=== PATIENT | female | born 1990 | race Caucasian/White ===

== ENCOUNTER 2019-10-16 20:11 | Emergency (ER) | payer BC ==
[~2019-10-16] VITALS: Ht 162.6 cm; Wt 61.2 kg
--- NOTE | 2019-10-16 20:22 | NUR ---
PT PLACED IN BED 10. 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 PT STATES SHE WAS SUPPOSED TO HAVE ABLATION SURGERY TODAY AT [facility]. PT ALSO STATES SHE HAS R ARM CRAMPING. AAOX4. NO SOB. BREATHING EVENLY AND UNLABORED. CONNECTED TO MONITOR.
--- NOTE | 2019-10-16 20:25 | NUR ---
DALILA GARCES AT BEDSIDE FOR EVAL
[2019-10-16] MEDS ORDERED: IV NS 0.9% 1,000 ML BAG IV ONE (20:30)
[2019-10-16] MEDS ORDERED: LORAZEPAM INJ 2 MG/ML VIAL ONE (20:41)
[2019-10-16 20:50] LABS: BASOPHILS # (AUTO) 0.1 /CMM (0.0-0.2); EOSINOPHILS % (AUTO) 1.4 % (0.0-6.0); HEMATOCRIT 39 % (33-45); HEMOGLOBIN 13.1 g/dL (11.5-14.8); LYMPHOCYTES # (AUTO) 2.4 /CMM (0.8-4.8); LYMPHOCYTES % (AUTO) 31.5 % (20.0-44.0); MEAN CORPUSCULAR HGB CONC 34 g/dl (31.0-36.0); MEAN CORPUSCULAR VOLUME 91 fL (82-100); MONOCYTES # (AUTO) 0.7 /CMM (0.1-1.30); MONOCYTES % (AUTO) 8.6 % (2.0-12.0); NEUTROPHILS # (AUTO) 4.5 /CMM (1.8-8.9); NEUTROPHILS % (AUTO) 57.5 % (43.0-81.0); PLATELET COUNT (AUTO) 199 /CMM (150-450); RED BLOOD CELL COUNT(AUTO) 4.24 MIL/uL (4.0-5.2); WHITE BLOOD COUNT (AUTO) 7.8 K/uL (4.3-11.0)
[2019-10-16 20:59] LABS: CALCIUM, SERUM 8.9 mg/dL (8.5-10.1); CARBON DIOXIDE 23 mmol/L (21-32); CHLORIDE 105 mmol/L (98-107); CREATININE 0.8 mg/dL (0.6-1.3); GLUCOSE 124 mg/dL (74-106); POTASSIUM 3.5 mmol/L (3.5-5.1); SODIUM SERUM 138 mmol/L (136-145); UREA NITROGEN, BLOOD 13 mg/dL (7-18)
[2019-10-16] MEDS ORDERED: LORAZEPAM INJ 2 MG/ML VIAL IV ONE (21:00)
[2019-10-16 21:26] LABS: THYROID STIMULATING HORMONE 0.639 uIU/mL (0.358-3.74)
[2019-10-16 21:45] LABS: MAGNESIUM 1.5 mg/dL (1.8-2.4)
--- NOTE | 2019-10-16 21:46 | NUR ---
PATIENT RESTING COMFORTABLY AT BED 10. AUNT AT BEDSIDE. NOT IN ANY DISTRESS. CONNECTED TO MONITOR. BREATHING EVENLY AND UNLABORED.
--- NOTE | 2019-10-16 22:11 | NUR ---
EP ZACK MITCHELL. [phone]
--- NOTE | 2019-10-16 22:15 | NUR ---
CALLED DR MITCHELL. 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 AWAITING HIS CALL
[2019-10-16] MEDS ORDERED: METOCLOPRAMIDE HCL 10 MG/2 ML VIAL ONE (22:21)
[2019-10-16] MEDS ORDERED: MAGNESIUM OXIDE 400 MG TABLET PO ONE (22:30)
[2019-10-16] MEDS ORDERED: METOCLOPRAMIDE HCL 10 MG/2 ML VIAL IV ONE (22:30)
[2019-10-16] MEDS ORDERED: MAGNESIUM OXIDE 400 MG TABLET ONE (22:43)
--- NOTE | 2019-10-16 23:10 | NUR ---
IV removed. Catheter intact and site benign. Pressure and 4x4 applied to site. No bleeding noted. Patient discharged to home in stable condition. Written and verbal after care instructions given. Patient verbalizes understanding of instruction. Patient is ambulatory with a steady gait.
[2019-10-16 23:11] VITALS: BP 115/78
== END 2019-10-16 23:12 | disposition home or self-care (01) ==
LOC: ER 20:13
DX: R00.2 Palpitations (principal); R11.2 Nausea with vomiting, unspecified; F41.9 Anxiety disorder, unspecified; R00.0 Tachycardia, unspecified
CPT/HCPCS: 36415; 71045; 80048; 80305; 83735; 84439; 84443; 84481; 84484; 84703; 85025; 85378; 93005; 96361; 96374; 96375; 99284; J2060; J2765; J7030